=== PATIENT | female | born 1940 | race Caucasian/White ===

== ENCOUNTER 2017-02-08 18:58 | Emergency (ER) | payer MEDICARE, MEDICAID ==
[2017-02-08 19:22] VITALS: BP 120/67
[2017-02-08] MEDS ORDERED: fentaNYL 100 MCG/2 ML SDV IM ONE (20:07)
--- NOTE | 2017-02-08 20:16 | EDM.PDOC ---
ED HPI Trauma - General Chief Complaint: Lower Extremity Injury/Pain Stated Complaint: R KNEE PAIN Time Seen by Provider: 02/08/17 19:53 Source: Reports: Patient, Old records, RN notes reviewed History Limitations: Reports: No limitations - History of Present Illness INITIAL COMMENTS - FREE TEXT/NARRATIVE: Brought by daughter Chief complaint Right knee pain HPI 76-year-old female, lives on her own, normal ambulatory without assistance, had a nagging ache in her right knee when she woke up yesterday morning. He gradually got worse over the day and towards evening she started using a cane to walk around. She had some numbness in the left foot last night. The knee pain was bad enough to keep her awake in she was restless all night until she finally drifted to sleep about 4 AM. Discomfort was a bit better in the morning but she became to get around. And at the afternoon about 4 PM the pain became unbearable. She took some Tylenol without any benefit. She applied heat without benefit. It was worse with movement worse with weightbearing. She kept it still in a bent position. No longer has numbness but she does notice some tingling in the left foot. As she arrived here she noticed some swelling of the knee and she is tender on the inside of the knee. No ankle pain no hip pain no other joint pain or swelling. No history of injury No fever no rash 3 years ago she had swelling of the left knee which was much worse but the pain is much worse with this joint pain today Allergies/ADRs: Allergies acetaminophen [From Darvocet-N] Allergy (Verified 02/08/17 19:21) Cannot Remember amoxicillin Allergy (Verified 02/08/17 19:21) Cannot Remember aspirin Allergy (Verified 02/08/17 19:21) Cannot Remember ibuprofen Allergy (Verified 02/08/17 19:21) Cannot Remember meperidine HCl [From Demerol] Allergy (Verified 02/08/17 19:21) Cannot Remember morphine Allergy (Verified 02/08/17 19:21) Cannot Remember propoxyphene napsylate [From Darvocet-N] Allergy (Verified 02/08/17 19:21) Cannot Remember sulfamethoxazole [From Bactrim] Allergy (Verified 02/08/17 19:21) Cannot Remember tiotropium bromide [From Spiriva with HandiHaler] Allergy (Verified 02/08/17 19: 21) Cannot Remember tramadol Allergy (Verified 02/08/17 19:21) Cannot Remember trimethoprim [From Bactrim] Allergy (Verified 02/08/17 19:21) Cannot Remember varenicline tartrate [From Chantix] Allergy (Verified 02/08/17 19:21) Cannot Remember Home Medications: Ambulatory Orders Acetaminophen [Tylenol] 2 tab PO Q6H PRN 11/23/15 [Confirmed 02/08/17] Albuterol Sulfate [Proair Hfa] 2 puff INH QID 11/23/15 [Confirmed 02/08/17] Cholecalciferol (Vitamin D3) [Vitamin D3] 1 tab PO DAILY 11/23/15 [Confirmed 11/26] Clopidogrel [Plavix] 75 mg PO DAILY 11/23/15 [Confirmed 02/08/17] Fluticasone/Salmeterol [Advair Diskus 500-50] 1 puff INH BID 11/23/15 [ Confirmed 02/08/17] Gabapentin [Neurontin] 300 mg PO BID 11/23/15 [Confirmed 02/08/17] Garlic 1 tab PO DAILY 11/23/15 [Confirmed 02/08/17] Isosorbide Mononitrate [Imdur] 1 tab PO DAILY 11/23/15 [Confirmed 02/08/17] Lisinopril 1 tab PO DAILY 11/23/15 [Confirmed 02/08/17] Multivitamin [Multivitamins] 1 tab PO DAILY 11/23/15 [Confirmed 02/08/17] Nitroglycerin 1 tab SL ASDIRECTED 11/23/15 [Confirmed 02/08/17] Pantoprazole [ProTONIX] 1 tab PO DAILY 11/23/15 [Confirmed 02/08/17] Simvastatin [Zocor] 1 tab PO BEDTIME 11/23/15 [Confirmed 02/08/17] Hydrocodone/Acetaminophen [Hydrocodon-Acetaminophen 5-325] 1 each PO Q4H PRN #8 tablet 02/08/17 Prednisone [IJD: Prednisone] 40 mg PO DAILY #30 tab 02/08/17 tiZANidine [Zanaflex] 4 mg PO BEDTIME 02/08/17 [Confirmed 02/08/17] Past Medical History HEENT History: Reports: Cataract Cardiovascular History: Reports: CAD, High cholesterol, Hypertension, Other ( see below) Other Cardiovascular History: carotid bruit, subclavian steal syndrome, claudication, peripheral artery disease Respiratory History: Reports: COPD Gastrointestinal History: Reports: Cholelithiasis, Colon polyp, GERD Other Gastrointestinal History: AAA Genitourinary History: Reports: Diabetic nephropathy, Renal disease, Other (see below) Other Genitourinary History: unspecified kidney failure, CKD stage 3. 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: Musculoskeletal History: Reports: Osteoarthritis, Osteoporosis Neurological History: Reports: None Psychiatric History: Reports: None Endocrine/Metabolic History: Reports: Diabetes, type II Hematologic History: Reports: Blood transfusion(s) Immunologic History: Reports: None Oncologic (Cancer) History: Reports: None - Past Surgical History Cardiovascular Surgical History: Reports: Coronary artery stent GI Surgical History: Reports: Appendectomy, Cholecystectomy, Colonoscopy, Other (see below) Other GI Surgeries/Procedures: adenomatous polyp of colon Female Surgical History: Reports: Hysterectomy, Oophorectomy, Salpingo- oophorectomy Neurological Surgical History: Reports: None Musculoskeletal Surgical History: Reports: Other (see below) Other Musculoskeletal Surgeries/Procedures:: bilat toe surgery Social & Family History - Tobacco Use Smoking Status *Q: Current Every Day Smoker Years of Tobacco use: 60 Packs/Tins Daily: 1 - Recreational Drug Use Recreational Drug Use: No Review of Systems - Review of Systems Review Of Systems: See Below Constitutional: Reports: no symptoms Nose: Reports: no symptoms Mouth/Throat: Reports: no symptoms Respiratory: Reports: No Symptoms Cardiovascular: Reports: no symptoms GI/Abdominal: Reports: No symptoms Musculoskeletal: Reports: joint pain (Right knee), joint swelling (Right knee) Skin: Reports: no symptoms Neurological: Reports: Paresthesia, Gait Disturbance (Because of the pain) Psychiatric: Reports: other (Sleep disturbance) Trauma Exam - Physical Exam Exam: See Below Exam Limited By: No limitations General Appearance: Reports: alert, moderate distress, other (Vital signs normal , No difficulty speaking or breathing) Head: Reports: atraumatic, normocephalic Throat/Mouth: Reports: Normal inspection Respiratory Exam: Reports: no respiratory distress, no accessory muscle use Cardiovascular: Reports: normal peripheral pulses, regular rate, rhythm Extremities: Reports: no evidence of injury, pain with movement (Right knee), tenderness, unable to bear weight (Partial weightbearing only), other (Swelling superior and medial to the patella of the right knee, moderate warmth but no redness no heat no tenseness to the joint, no appreciable effusion of the joint , and appears to be extra-articular swelling, no redness) Neurologic: Reports: no motor/sensory deficits Skin: Reports: Normal color, Warm/dry, Other (No erythema, no cellulitis, no lymphangitis) Course - Vital Signs Last Recorded V/S: Last Vital Signs Temp 36.8 C 02/08/17 19:31 Pulse 93 02/08/17 19:31 Resp 16 02/08/17 19:31 BP 120/67 02/08/17 19:31 Pulse Ox 96 02/08/17 19:31 - Orders/Labs/Meds Orders: Active Orders 24 hr Category Date Time Status Bobby Bandage [RC] ONETIME Care 02/08/17 21:28 Active Knee 3V Rt [CR] Stat Exams 02/08/17 20:07 Taken Labs: Laboratory Tests 02/08/17 02/08/17 Range/Units 20:14 20:14 WBC 10.3 (4.5-11.0) K/uL RBC 4.59 (3.30-5.50) M/uL Hgb 13.5 D (12.0-15.0) g/dL Hct 41.3 (36.0-48.0) % MCV 90 (80-98) fL MCH 29 (27-31) pg MCHC 33 (32-36) % Plt Count 239 (150-400) K/uL Alkaline Phosphatase 88 (46-116) U/L C-Reactive Protein 6.50 H (0.0-0.3) mg/dL Meds: Medications Discontinued Medications Generic Name Dose Route Start Last Admin Trade Name Freq PRN Reason Stop Dose Admin Fentanyl 100 mcg 02/08/17 20:07 02/08/17 20:12 Sublimaze IM 02/08/17 20:08 100 mcg ONETIME ONE Administration - Re-Assessments/Exams Free Text/Narrative Re-Assessment/Exam: 02/08/17 20:16 76-year-old female with acute pain right knee, gradual onset of pain and swelling, warmth and extra-articular swelling, suggests bursitis. Fentanyl 100 mcg IM for pain X-ray small effusion but otherwise no significant abnormality Lab normal CBC but elevated CRP Impression Bursitis right knee Bobby wrap to knee Start prednisone, 40 mg daily for 5 days OTC analgesics her prescription pain meds as needed Followup primary care within one week Return to emergency if worsening See discharge instructions below 02/08/17 23:44 02/08/17 23:45 02/08/17 23:45 Departure - Departure Time of Disposition: 21:28 Disposition: Home, Self-Care 01 Condition: good Clinical Impression: Bursitis of left knee Qualifiers: Knee bursitis location: unspecified Qualified Code(s): M70.52 - Other bursitis of knee, left knee Prescriptions: Hydrocodone/Acetaminophen [Hydrocodon-Acetaminophen 5-325] 1 each PO Q4H PRN #8 tablet PRN Reason: Moderate to severe pain Prednisone [IJD: Prednisone] 40 mg PO DAILY #30 tab Instructions: Bursitis, [id number], Prepatellar Bursitis With Rehab-SportsMed Referrals: Louie Arriaga MD [Primary Care Provider] - Forms: ED Department Discharge Additional Instructions: you may take acetaminophen for pain Applying heat can be helpful Use the Bobby wrap for 3-5 days, it can be removed for bathing and if it increases the pain he can be left off. Have your physician recheck your knee within the week Get rechecked promptly if the knee becomes very red hot or you develop a fever - My Orders Last 24 Hours: My Active Orders 02/08/17 20:07 Knee 3V Rt [CR] Stat 02/08/17 21:28 Bobby Bandage [RC] ONETIME - Assessment/Plan Last 24 Hours: My Active Orders 02/08/17 20:07 Knee 3V Rt [CR] Stat 02/08/17 21:28 Bobby Bandage [RC] ONETIME
--- NOTE | 2017-02-09 09:44 | CR ---
Small effusion. No definitive fracture. The space narrowing medial compartment.
== END 2017-02-08 21:48 | disposition home or self-care (01) ==
LOC: JP.ED 18:58
DX: M70.52 Other bursitis of knee, left knee (principal); I25.10 Atherosclerotic heart disease of native coronary artery without angina pectoris; I10 Essential (primary) hypertension; E78.00 Pure hypercholesterolemia, unspecified; J44.9 Chronic obstructive pulmonary disease, unspecified; K21.9 Gastro-esophageal reflux disease without esophagitis; E11.21 Type 2 diabetes mellitus with diabetic nephropathy; F17.210 Nicotine dependence, cigarettes, uncomplicated; Z95.5 Presence of coronary angioplasty implant and graft; Z90.49 Acquired absence of other specified parts of digestive tract; Z90.710 Acquired absence of both cervix and uterus; Z90.721 Acquired absence of ovaries, unilateral; Z98.890 Other specified postprocedural states; Z79.02 Long term (current) use of antithrombotics/antiplatelets; Z79.899 Other long term (current) drug therapy; Z88.1 Allergy status to other antibiotic agents; Z88.5 Allergy status to narcotic agent; Z88.8 Allergy status to other drugs, medicaments and biological substances
CPT/HCPCS: 36415; 73562; 84075; 85027; 86140; 96372; 99283; 99284; J3010

== ENCOUNTER 2017-04-21 07:27 | Day surgery (SDC) | payer MEDICARE, MEDICAID ==
[2017-04-21] MEDS ORDERED: Sodium Chloride 0.9% 10 ML Syringe FLUSH PRN (08:00)
[2017-04-21 09:42] VITALS: BP 104/78
--- NOTE | 2017-04-21 10:23 | OR ---
DATE OF PROCEDURE: 04/21/2017 POSTOPERATIVE CARE: Postoperative care will be provided mainly at the [address] [place] [address] [facility] in conjunction with [facility]. PREOPERATIVE DIAGNOSIS: Cataract, left eye. POSTOPERATIVE DIAGNOSIS: Cataract, left eye. PROCEDURE: Phacoemulsification with intraocular lens placement, left eye. ANESTHESIA: Topical and intracameral. ESTIMATED BLOOD LOSS: Minimal. COMPLICATIONS: None. PATHOLOGY SPECIMENS: None. SURGICAL FINDINGS: None. INDICATION FOR PROCEDURE: The patient is a 76-year-old female with history of a visually significant cataract in the left eye, which interfered with activities of daily living. This consisted of a nuclear sclerosis cataract. Following careful discussion of the risks, benefits and alternatives to cataract extraction with intraocular lens placement including blindness and , the patient elected to proceed, and informed, written consent was obtained prior to the procedure. DESCRIPTION OF THE PROCEDURE: The patient was previously identified, and a latisha placed above the left eye. All sources, including the patient, indicated that the left eye was the correct eye. The patient was subsequently taken to the operating room where standard monitors were applied. The patient was then prepped and draped in the usual sterile fashion for ophthalmic surgery. Attention was first directed at the 12 o'clock position where a paracentesis port was fashioned. Shugar solution followed by Viscoat was instilled into the eye. Attention was then directed to the 8:30 position where a triplanar incision was made in a near-clear manner using a keratome. A continuous capsulorrhexis was then made using a combination of the cystotome and Utrata forceps. Hydrodissection was achieved using a balanced salt solution, and the lens rotated nicely. Phacoemulsification was then done using a modified [id number] technique without complication. Phaco time was 9.66 CDE. The remaining cortex was removed using the irrigation/aspiration handpiece. Provisc was then instilled into the eye. A Technis lens, model [id number], at 21.0 diopters was then placed in the capsular bag using an [place] injector. The remaining viscoelastic was removed using the irrigation/aspiration forceps. All wounds were then checked and found to be watertight. The lid speculum and drapes were removed. Maxitrol ointment was placed in the patient's left eye, and the eye was shielded. The patient tolerated the procedure well. The patient was instructed to follow up tomorrow. All needle and sponge counts were correct at the end of the procedure. Zoie Garcia MD /[id number]
== END 2017-04-21 09:05 | disposition home or self-care (01) ==
LOC: JP.SDS 07:27
PROVIDERS: ATTEND Ophthalmology
DX: H26.9 Unspecified cataract (principal); I10 Essential (primary) hypertension; E11.9 Type 2 diabetes mellitus without complications; J44.9 Chronic obstructive pulmonary disease, unspecified; K21.9 Gastro-esophageal reflux disease without esophagitis; Z88.1 Allergy status to other antibiotic agents; Z88.2 Allergy status to sulfonamides; Z88.8 Allergy status to other drugs, medicaments and biological substances
CPT/HCPCS: 66984; C1780

== ENCOUNTER 2017-05-05 06:38 | Day surgery (SDC) | payer MEDICARE, MEDICAID ==
[2017-05-05 06:59] VITALS: BP 130/82
[2017-05-05] MEDS ORDERED: Sodium Chloride 0.9% 10 ML Syringe FLUSH PRN (07:00)
--- NOTE | 2017-05-05 09:46 | OR ---
DATE OF PROCEDURE: 05/05/2017 POSTOPERATIVE CARE: Postoperative care will be provided mainly at the [address] [place] [address] [facility] in conjunction with [facility]. PREOPERATIVE DIAGNOSIS: Cataract, right eye. POSTOPERATIVE DIAGNOSIS: Cataract, right eye. PROCEDURE: Phacoemulsification with intraocular lens placement, right eye. ANESTHESIA: Topical and intracameral. ESTIMATED BLOOD LOSS: Minimal. COMPLICATIONS: None. PATHOLOGY SPECIMENS: None. SURGICAL FINDINGS: None. INDICATION FOR PROCEDURE: The patient is a 76-year-old female with history of a visually significant cataract in the right eye, which interfered with activities of daily living. This consisted of a nuclear sclerosis cataract. Following careful discussion of the risks, benefits and alternatives to cataract extraction with intraocular lens placement including blindness and , the patient elected to proceed, and informed, written consent was obtained prior to the procedure. DESCRIPTION OF THE PROCEDURE: The patient was previously identified, and a latisha placed above the right eye. All sources, including the patient, indicated that the right eye was the correct eye. The patient was subsequently taken to the operating room where standard monitors were applied. The patient was then prepped and draped in the usual sterile fashion for ophthalmic surgery. Attention was first directed at the 12 o'clock position where a paracentesis port was fashioned. Shugar solution followed by Viscoat was instilled into the eye. Attention was then directed to the 8:30 position where a triplanar incision was made in a near-clear manner using a keratome. A continuous capsulorrhexis was then made using a combination of the cystotome and Utrata forceps. Hydrodissection was achieved using a balanced salt solution, and the lens rotated nicely. Phacoemulsification was then done using a modified [id number] technique without complication. Phaco time was 10.52 CDE. The remaining cortex was removed using the irrigation/aspiration handpiece. Provisc was then instilled into the eye. A Technis lens, model [id number], at 21.0 diopters was then placed in the capsular bag using an [place] injector. The remaining viscoelastic was removed using the irrigation/aspiration forceps. All wounds were then checked and found to be watertight. The lid speculum and drapes were removed. Maxitrol ointment was placed in the patient's right eye, and the eye was shielded. The patient tolerated the procedure well. The patient was instructed to follow up tomorrow. All needle and sponge counts were correct at the end of the procedure. Zoie Garcia MD /[id number]
== END 2017-05-05 08:05 | disposition home or self-care (01) ==
LOC: JP.SDS 06:38
PROVIDERS: ATTEND Ophthalmology
DX: H26.9 Unspecified cataract (principal); E11.22 Type 2 diabetes mellitus with diabetic chronic kidney disease; I12.9 Hypertensive chronic kidney disease with stage 1 through stage 4 chronic kidney disease, or unspecified chronic kidney disease; N18.9 Chronic kidney disease, unspecified; K21.9 Gastro-esophageal reflux disease without esophagitis; I25.10 Atherosclerotic heart disease of native coronary artery without angina pectoris; Z88.1 Allergy status to other antibiotic agents; Z88.8 Allergy status to other drugs, medicaments and biological substances; F17.210 Nicotine dependence, cigarettes, uncomplicated
CPT/HCPCS: 66984; C1780; J7050

== ENCOUNTER 2018-03-13 00:42 | Inpatient (IN) | payer MEDICARE, MEDICAID ==
--- NOTE | 2018-03-13 01:21 | EDM.PDOC ---
ED HPI GENERAL MEDICAL PROBLEM - General Chief Complaint: Gastrointestinal Problem Stated Complaint: RECTAL BLEEDING Time Seen by Provider: 03/13/18 01:05 Source of Information: Reports: Patient, Old Records, RN History Limitations: Reports: No Limitations - History of Present Illness INITIAL COMMENTS - FREE TEXT/NARRATIVE: 77 yo female presents after the passage of blood per rectum several times tonight. She has not had nausea or vomiting. Is on Plavix for coronary stents. There is not abdominal pain. She has no hx of rectal bleeding in the past. Is still a smoker. Onset: Today Onset Date: 03/12/18 Duration: Hour(s): (~2) Location: Reports: Abdomen Quality: Reports: Other (no pain) Severity: Moderate Improves with: Reports: None Worsens with: Reports: None Context: Reports: Other (Take Plavix) Associated Symptoms: Reports: No Other Symptoms. Denies: Fever/Chills, Nausea/ Vomiting Treatments CLAIMS ADJUSTOR: Reports: Other (see below) (none) denies pain Pain Score (Numeric/FACES): 0 - Related Data Allergies Allergy/AdvReac Type Severity Reaction Status Date / Time acetaminophen Allergy Cannot Verified 05/05/17 06:54 [From Darvocet-N] Remember amoxicillin Allergy Cannot Verified 05/05/17 06:54 Remember aspirin Allergy Cannot Verified 05/05/17 06:54 Remember ibuprofen Allergy Cannot Verified 05/05/17 06:54 Remember meperidine HCl [From Demerol] Allergy Cannot Verified 05/05/17 06:54 Remember morphine Allergy Cannot Verified 05/05/17 06:54 Remember propoxyphene napsylate Allergy Cannot Verified 05/05/17 06:54 [From Darvocet-N] Remember sulfamethoxazole Allergy Cannot Verified 05/05/17 06:54 [From Bactrim] Remember tiotropium bromide Allergy Cannot Verified 05/05/17 06:54 [From Spiriva with Remember HandiHaler] tramadol Allergy Hallucinati Verified 03/13/18 00:51 ons trimethoprim [From Bactrim] Allergy Cannot Verified 05/05/17 06:54 Remember varenicline tartrate Allergy Cannot Verified 05/05/17 06:54 [From Chantix] Remember Home Meds: Home Meds Acetaminophen [Tylenol] 2 tab PO Q6H PRN 11/23/15 [History] Albuterol Sulfate [Proair Hfa] 2 puff INH QID 11/23/15 [History] Cholecalciferol (Vitamin D3) [Vitamin D3] 1 tab PO DAILY 11/23/15 [History] Clopidogrel [Plavix] 75 mg PO DAILY 11/23/15 [History] Fluticasone/Salmeterol [Advair Diskus 500-50] 1 puff INH BID 11/23/15 [History] Gabapentin [Neurontin] 300 mg PO BID 11/23/15 [History] Garlic 1 tab PO DAILY 11/23/15 [History] Isosorbide Mononitrate [Imdur] 1 tab PO DAILY 11/23/15 [History] Lisinopril 1 tab PO DAILY 11/23/15 [History] Multivitamin [Multivitamins] 1 tab PO DAILY 11/23/15 [History] Nitroglycerin 1 tab SL ASDIRECTED 11/23/15 [History] Pantoprazole [ProTONIX] 1 tab PO DAILY 11/23/15 [History] Simvastatin [Zocor] 1 tab PO BEDTIME 11/23/15 [History] tiZANidine [Zanaflex] 4 mg PO BEDTIME 02/08/17 [History] Past Medical History HEENT History: Reports: Cataract, Impaired Vision Cardiovascular History: Reports: CAD, High Cholesterol, Hypertension, [place] Other Cardiovascular History: carotid bruit, subclavian steal syndrome, claudication, peripheral artery disease Respiratory History: Reports: COPD Gastrointestinal History: Reports: Cholelithiasis, Colon Polyp, GERD Other Gastrointestinal History: AAA Genitourinary History: Reports: Diabetic Nephropathy, Renal Disease Other Genitourinary History: unspecified kidney failure, CKD stage 3. SOLE DYER History: Reports: Dysfunctional Uterine Bleeding, , Spontaneous Musculoskeletal History: Reports: Back Pain, Chronic, Fracture, Osteoarthritis Neurological History: Reports: Neuropathy, Diabetic Psychiatric History: Reports: None Endocrine/Metabolic History: Reports: Diabetes, Type II, Osteopenia Hematologic History: Reports: Blood Transfusion(s) Immunologic History: Reports: None Oncologic (Cancer) History: Reports: None - Infectious Disease History Infectious Disease History: Reports: Chicken Pox, Measles, Mumps, Shingles - Past Surgical History HEENT Surgical History: Reports: Cataract Surgery, Other (See Below) Other HEENT Surgeries/Procedures: torn macula surgically repaired Cardiovascular Surgical History: Reports: Carotid Endarterectomy, Coronary Artery Stent GI Surgical History: Reports: Appendectomy, Cholecystectomy, Colonoscopy Female Surgical History: Reports: D&C, Hysterectomy, Oophorectomy, Salpingo- Oophorectomy Social & Family History - Tobacco Use Smoking Status *Q: Current Every Day Smoker Years of Tobacco use: 55 Packs/Tins Daily: 1 - Caffeine Use Caffeine Use: Reports: Coffee - Recreational Drug Use Recreational Drug Use: No ED ROS GENERAL - Review of Systems Review Of Systems: See Below Constitutional: Reports: No Symptoms HEENT: Reports: No Symptoms Respiratory: Reports: No Symptoms Cardiovascular: Reports: No Symptoms GI/Abdominal: Reports: Bloody Stool (glendy blood per rectum x 6 since onset including here in the ER.). Denies: Abdominal Pain, Constipation, Distension, Hematemesis, Nausea, Vomiting : Reports: No Symptoms Musculoskeletal: Reports: No Symptoms Skin: Reports: No Symptoms Neurological: Reports: No Symptoms Psychiatric: Reports: No Symptoms ED EXAM, GI/ABD - Physical Exam Exam: See Below Exam Limited By: No Limitations General Appearance: Alert, WD/WN, No Apparent Distress Eyes: Bilateral: Normal Appearance Ears: Normal External Exam, Normal Canal, Hearing Grossly Normal Nose: Normal Inspection, Normal Mucosa, No Blood Throat/Mouth: Normal Inspection, Normal Lips, Normal Oropharynx, Normal Voice, No Airway Compromise Head: Atraumatic, Normocephalic Neck: Normal Inspection Respiratory/Chest: No Respiratory Distress, Lungs Clear, Normal Breath Sounds, No Accessory Muscle Use Cardiovascular: Regular Rate, Rhythm, No Edema GI/Abdominal Exam: Normal Bowel Sounds, Soft, Non-Tender, No Distention, Abnormal Bowel Sounds (increased) Back Exam: Normal Inspection. No: CVA Tenderness (R), CVA Tenderness (L) Extremities: Normal Inspection, Normal Range of Motion, Non-Tender, No Pedal Edema Neurological: Alert, Oriented, CN II-XII Intact, Normal Cognition, No Motor/ Sensory Deficits Psychiatric: Normal Affect, Normal Mood Skin Exam: Warm, Dry, Intact, Normal Color, No Rash Lymphatic: No Adenopathy Course - Vital Signs Text/Narrative:: Stool in toilet is grossly just red blood and clots. Last Recorded V/S: Last Vital Signs Temp 35.6 C 03/13/18 01:05 Pulse 76 03/13/18 01:05 Resp 20 03/13/18 01:05 BP 139/108 H 03/13/18 01:05 Pulse Ox 97 03/13/18 01:05 - Orders/Labs/Meds Orders: Active Orders 24 hr Category Date Time Status BASIC METABOLIC PANEL,BMP [CHEM] Stat Lab 03/13/18 01:10 Ordered CBC W/O DIFF,HEMOGRAM [HEME] Stat Lab 03/13/18 01:10 Ordered RED BLOOD CELLS LP [BBK] Stat Lab 03/13/18 01:10 Ordered TYPE AND SCREEN [BBK] Stat Lab 03/13/18 01:10 Ordered UA W/MICROSCOPIC [URIN] Stat Lab 03/13/18 01:10 Ordered Lactated Ringers [Ringers, Lactated] 1,000 ml Med 03/13/18 01:15 Active IV ASDIRECTED Sodium Chloride 0.9% [Normal Saline] 1,000 ml Med 03/13/18 01:30 Active IV ASDIRECTED Medication Orders Lactated Ringer's (Ringers, Lactated) 1,000 mls @ 500 mls/hr IV ASDIRECTED JOSE M Last Admin: 03/13/18 01:34 Dose: 500 mls/hr Sodium Chloride (Normal Saline) 1,000 mls @ 50 mls/hr IV ASDIRECTED JOSE M Meds: Medications Generic Name Dose Route Start Last Admin Trade Name Mesfin PRN Reason Stop Dose Admin Lactated Ringer's 1,000 mls @ 500 mls/hr 03/13/18 01:15 03/13/18 01:34 Ringers, Lactated IV 500 mls/hr ASDIRECTED JOSE M Administration Sodium Chloride 1,000 mls @ 50 mls/hr 03/13/18 01:30 Normal Saline IV ASDIRECTED JOSE M Departure - Departure Time of Disposition: 02:00 Disposition: Admitted As Inpatient 66 Condition: Fair Clinical Impression: Platelet inhibition due to Plavix GI bleeding Qualifiers: GI bleed type/associated pathology: unspecified gastrointestinal hemorrhage type Qualified Code(s): K92.2 - Gastrointestinal hemorrhage, unspecified - Discharge Information Referrals: Louie Arriaga MD [Primary Care Provider] - Forms: ED Department Discharge - My Orders Last 24 Hours: My Active Orders 03/13/18 01:10 BASIC METABOLIC PANEL,BMP [CHEM] Stat CBC W/O DIFF,HEMOGRAM [HEME] Stat RED BLOOD CELLS LP [BBK] Stat TYPE AND SCREEN [BBK] Stat UA W/MICROSCOPIC [URIN] Stat 03/13/18 01:15 Lactated Ringers [Ringers, Lactated] 1,000 ml IV ASDIRECTED 03/13/18 01:30 Sodium Chloride 0.9% [Normal Saline] 1,000 ml IV ASDIRECTED - Assessment/Plan Last 24 Hours: My Active Orders 03/13/18 01:10 BASIC METABOLIC PANEL,BMP [CHEM] Stat CBC W/O DIFF,HEMOGRAM [HEME] Stat RED BLOOD CELLS LP [BBK] Stat TYPE AND SCREEN [BBK] Stat UA W/MICROSCOPIC [URIN] Stat 03/13/18 01:15 Lactated Ringers [Ringers, Lactated] 1,000 ml IV ASDIRECTED 03/13/18 01:30 Sodium Chloride 0.9% [Normal Saline] 1,000 ml IV ASDIRECTED
[2018-03-13] MEDS: Lactated Ringers 1,000 ML IV SCH ×2 (01:34→04:14)
[2018-03-13] MEDS: Sodium Chloride 0.9% 1,000 ML IV SCH ×2 (02:02→05:45)
[2018-03-13] MEDS ORDERED: Pantoprazole 40 MG Vial IVPUSH ONE (02:22)
[2018-03-13] MEDS ORDERED: Lactated Ringers 1,000 ML IV SCH (03:15)
[2018-03-13] MEDS ORDERED: Sodium Chloride 0.9% 100 ML with Pantoprazole 80 MG IV SCH ×2 (03:15)
[2018-03-13] MEDS ORDERED: Sodium Chloride 0.9% 1,000 ML IV SCH (03:15)
[2018-03-13] MEDS ORDERED: fentaNYL 100 MCG/2 ML SDV IVPUSH PRN (03:18)
--- NOTE | 2018-03-13 03:31 | PCM.HP ---
H&P History of Present Illness - General Date of Service: 03/13/18 Admit Problem/Dx: Gastrointestinal bleeding Source of Information: Patient, Family, RN Notes Reviewed History Limitations: Reports: No Limitations - History of Present Illness Initial Comments - Free Text/Narative: 77-year-old female presents to the emergency department today with complaint of bright red blood per rectum. She states she's never had this before this is a new event she has had a colonoscopy in the past however it was several years ago. By report she states the colonoscopy only showed polyps. This particular event the bleeding started around 10 PM she has had multiple bloody stools with clots at this time she has had continual flow of blood per rectum. She does feel lightheaded does complain of shortness of breath but not beyond baseline. Complaining of abdominal cramping. History of recent hemorrhoid banding of this procedure 2 weeks ago no known complications Onset of Symptoms: Reports: Today denies pain Pain Score (Numeric/FACES): 0 - Related Data Allergies/Adverse Reactions: Allergies Allergy/AdvReac Type Severity Reaction Status Date / Time acetaminophen Allergy Cannot Verified 05/05/17 06:54 [From Darvocet-N] Remember amoxicillin Allergy Cannot Verified 05/05/17 06:54 Remember aspirin Allergy Cannot Verified 05/05/17 06:54 Remember ibuprofen Allergy Cannot Verified 05/05/17 06:54 Remember meperidine HCl [From Demerol] Allergy Cannot Verified 05/05/17 06:54 Remember morphine Allergy Cannot Verified 05/05/17 06:54 Remember propoxyphene napsylate Allergy Cannot Verified 05/05/17 06:54 [From Darvocet-N] Remember sulfamethoxazole Allergy Cannot Verified 05/05/17 06:54 [From Bactrim] Remember tiotropium bromide Allergy Cannot Verified 05/05/17 06:54 [From Spiriva with Remember HandiHaler] tramadol Allergy Hallucinati Verified 03/13/18 00:51 ons trimethoprim [From Bactrim] Allergy Cannot Verified 05/05/17 06:54 Remember varenicline tartrate Allergy Cannot Verified 05/05/17 06:54 [From Chantix] Remember Home Medications: Home Meds Acetaminophen [Tylenol] 2 tab PO Q6H PRN 11/23/15 [History] Albuterol Sulfate [Proair Hfa] 2 puff INH QID 02/14/16 [History] Cholecalciferol (Vitamin D3) [Vitamin D3] 1,000 unit PO DAILY 11/23/15 [History] Clopidogrel [Plavix] 75 mg PO DAILY 11/23/15 [History] Fluticasone/Salmeterol [Advair Diskus 500-50] 1 puff INH BID 11/23/15 [History] Gabapentin [Neurontin] 300 mg PO BID 11/23/15 [History] Garlic 1,000 mg PO DAILY 11/23/15 [History] Isosorbide Mononitrate [Imdur] 30 mg PO DAILY 11/23/15 [History] Lisinopril 2.5 mg PO DAILY 11/23/15 [History] Multivitamin [Multivitamins] 1 tab PO DAILY 11/23/15 [History] Nitroglycerin 0.4 mg SL ASDIRECTED 11/23/15 [History] Pantoprazole [ProTONIX] 40 mg PO DAILY 11/23/15 [History] Simvastatin [Zocor] 80 mg PO BEDTIME 11/23/15 [History] tiZANidine [Zanaflex] 4 mg PO BEDTIME 02/08/17 [History] Propranolol [Inderal] 10 mg PO BID 03/13/18 [History] Past Medical History HEENT History: Reports: Cataract, Impaired Vision Cardiovascular History: Reports: CAD, High Cholesterol, Hypertension, CT Other Cardiovascular History: carotid bruit, subclavian steal syndrome, claudication, peripheral artery disease Respiratory History: Reports: COPD Gastrointestinal History: Reports: Cholelithiasis, Colon Polyp, GERD Other Gastrointestinal History: AAA Genitourinary History: Reports: Diabetic Nephropathy, Renal Disease Other Genitourinary History: unspecified kidney failure, CKD stage 3. FLAG SIGNALMAN History: Reports: Dysfunctional Uterine Bleeding, , Spontaneous Musculoskeletal History: Reports: Back Pain, Chronic, Fracture, Osteoarthritis Neurological History: Reports: Neuropathy, Diabetic Endocrine/Metabolic History: Reports: Diabetes, Type II, Osteopenia Hematologic History: Reports: Blood Transfusion(s) - Infectious Disease History Infectious Disease History: Reports: Chicken Pox, Measles, Mumps, Shingles - Past Surgical History HEENT Surgical History: Reports: Cataract Surgery, Other (See Below) Other HEENT Surgeries/Procedures: torn macula surgically repaired Cardiovascular Surgical History: Reports: Carotid Endarterectomy, Coronary Artery Stent GI Surgical History: Reports: Appendectomy, Cholecystectomy, Colonoscopy Female Surgical History: Reports: D&C, Hysterectomy, Oophorectomy, Salpingo- Oophorectomy Social & Family History - Tobacco Use Smoking Status *Q: Current Every Day Smoker Years of Tobacco use: 55 Packs/Tins Daily: 1 - Caffeine Use Caffeine Use: Reports: Coffee - Recreational Drug Use Recreational Drug Use: No H&P Review of Systems - Review of Systems: Review Of Systems: See Below General: Denies: Fever, Chills HEENT: Reports: No Symptoms Pulmonary: Reports: Shortness of Breath Cardiovascular: Reports: No Symptoms Gastrointestinal: Reports: Abdominal Pain, Bloody Stool. Denies: Nausea, Vomiting Genitourinary: Reports: No Symptoms Musculoskeletal: Reports: No Symptoms Skin: Reports: No Symptoms Psychiatric: Reports: No Symptoms Neurological: Reports: No Symptoms Exam - Exam Exam: See Below - Vital Signs Vital Signs: Last Vital Signs Temp 96.7 F 03/13/18 02:22 Pulse 74 03/13/18 02:57 Resp 20 03/13/18 02:57 BP 122/72 03/13/18 02:57 Pulse Ox 95 03/13/18 02:57 Weight: 41.73 kg - Exam Physical Exam Comments:: General: Elderly female, not in any distress, alert and oriented x3 HEENT: head is atraumatic normocephalic, eyes pupils equal round reactive to light, sclera clear no conjunctivitis appreciated. Ears tympanic membranes clear and chery landmarks and light reflex are present bilaterally canals are clear. Nose no septal deviation, nares are clear, no blood present. Mouth mucosa is moist and pink no erythema or exudate noted in soft palate, tongue is midline uvula is midline, dentition is none. Neck: Supple no thyromegaly no tracheal deviation. Nodes: Cervical nodes subclavicular nodes nontender no palpable lymphadenopathy noted. Lungs: Breath sounds are distant on appreciate any adventitious noises. CV: Regular rate and rhythm S1 and S2 appreciated grade 2/6 systolic ejection murmur best appreciated left sternal border, no rubs or gallops noted. Abdomen: Soft, generalized tenderness to palpation, no palpable masses or organomegaly appreciated, no distention no guarding bowel sounds are present, rectal exam done in the presence of nursing staff of bright red blood is present her rectal, I don't appreciate any external hemorrhoids Neuro: Cranial nerves II through XII grossly intact Skin: Warm and dry, intact Extremities: No lower extremity edema appreciated, pedal pulse is +2. - Patient Data Lab Results Last 24 hrs: Laboratory Results - last 24 hr 03/13/18 03/13/18 03/13/18 Range/Units 01:20 01:20 01:20 WBC 6.9 (4.5-11.0) K/uL RBC 4.46 (3.30-5.50) M/uL Hgb 13.5 (12.0-15.0) g/dL Hct 39.9 (36.0-48.0) % MCV 90 (80-98) fL MCH 30 (27-31) pg MCHC 34 (32-36) % Plt Count 222 (150-400) K/uL Sodium 132 L (140-148) mmol/L Potassium 4.3 (3.6-5.2) mmol/L Chloride 97 L (100-108) mmol/L Carbon Dioxide 30 (21-32) mmol/L Anion Gap 9.3 (5.0-14.0) mmol/L BUN 19 H (7-18) mg/dL Creatinine 1.0 (0.6-1.0) mg/dL Est Cr Clr Drug Dosing 31.04 mL/min Estimated GFR (MDRD) 54 L (>60) Glucose 138 H (74-106) mg/dL Calcium 8.4 L (8.5-10.1) mg/dL Urine Color Urine Appearance Urine pH (4.5-8.0) Ur Specific [place] (1.008-1.030) Urine Protein (NEGATIVE) mg/dL Urine Glucose (UA) (NEGATIVE) mg/dL Urine Ketones (NEGATIVE) mg/dL Urine Occult Blood (NEGATIVE) Urine Nitrite (NEGATIVE) Urine Bilirubin (NEGATIVE) Urine Urobilinogen (NORMAL) mg/dL Ur Leukocyte Esterase (NEGATIVE) Urine RBC (0-5) Urine WBC (0-5) Ur Epithelial Cells Amorphous Sediment Urine Bacteria Urine Mucus Blood Type A POSITIVE Gel Antibody Screen Negative Crossmatch See Detail 03/13/18 Range/Units 01:56 WBC (4.5-11.0) K/uL RBC (3.30-5.50) M/uL Hgb (12.0-15.0) g/dL Hct (36.0-48.0) % MCV (80-98) fL MCH (27-31) pg MCHC (32-36) % Plt Count (150-400) K/uL Sodium (140-148) mmol/L Potassium (3.6-5.2) mmol/L Chloride (100-108) mmol/L Carbon Dioxide (21-32) mmol/L Anion Gap (5.0-14.0) mmol/L BUN (7-18) mg/dL Creatinine (0.6-1.0) mg/dL Est Cr Clr Drug Dosing mL/min Estimated GFR (MDRD) (>60) Glucose (74-106) mg/dL Calcium (8.5-10.1) mg/dL Urine Color Yellow Urine Appearance Cloudy Urine pH 7.0 (4.5-8.0) Ur Specific [place] 1.005 L (1.008-1.030) Urine Protein Negative (NEGATIVE) mg/dL Urine Glucose (UA) Normal (NEGATIVE) mg/dL Urine Ketones Negative (NEGATIVE) mg/dL Urine Occult Blood Large (NEGATIVE) Urine Nitrite Negative (NEGATIVE) Urine Bilirubin Negative (NEGATIVE) Urine Urobilinogen Normal (NORMAL) mg/dL Ur Leukocyte Esterase Negative (NEGATIVE) Urine RBC 75-100 H (0-5) Urine WBC 0-5 (0-5) Ur Epithelial Cells Rare Amorphous Sediment Not seen Urine Bacteria Few Urine Mucus Not seen Blood Type Gel Antibody Screen Crossmatch Result Diagrams: 03/13/18 01:20 03/13/18 01:20 *Q Meaningful Use (ADM) - VTE *Q VTE Mechanical Contraindications *Q: At Risk for Falls VTE Pharmacological Contraindications *Q: Active Hemorrhage - VTE Risk Assess *Q Each Risk Factor Represents 3 Points: Age 75 Years or Greater Total Score 3 Point Risk Factors: 3 - Problem List (1) GI bleeding SNOMED Code(s): 48310259 ICD Code: K92.2 - GASTROINTESTINAL HEMORRHAGE, UNSPECIFIED Status: Acute Current Visit: Yes Qualifiers: GI bleed type/associated pathology: unspecified gastrointestinal hemorrhage type Qualified Code(s): K92.2 - Gastrointestinal hemorrhage, unspecified (2) COPD (chronic obstructive pulmonary disease) SNOMED Code(s): 00254635 ICD Code: J44.9 - CHRONIC OBSTRUCTIVE PULMONARY DISEASE, UNSPECIFIED Status : Chronic Priority: Medium Current Visit: No Qualifiers: COPD type: unspecified COPD Qualified Code(s): J44.9 - Chronic obstructive pulmonary disease, unspecified (3) Nicotine dependence SNOMED Code(s): 22495022 ICD Code: F17.200 - NICOTINE DEPENDENCE, UNSPECIFIED, UNCOMPLICATED Status : Chronic Priority: Low Current Visit: No Qualifiers: Nicotine product type: cigarettes Substance use status: unspecified nicotine-induced disorder Qualified Code(s): F17.219 - Nicotine dependence, cigarettes, with unspecified nicotine-induced disorders Problem List Initiated/Reviewed/Updated: Yes Orders Last 24hrs: Active Orders 24 hr Category Date Time Status Head of Bed Elevation [RC] ASDIRECTED Care 03/13/18 03:11 Ordered Intake and Output [RC] QSHIFT Care 03/13/18 03:12 Ordered Notify Provider Consults [RC] ASDIRECTED Care 03/13/18 02:19 Active Consult to Physician [CONS] Urgent Cons 03/13/18 02:15 Ordered BASIC METABOLIC PANEL,BMP [CHEM] AM Lab 03/13/18 05:11 Ordered CBC WITH AUTO DIFF [HEME] AM Lab 03/13/18 05:11 Ordered HEMOGLOBIN [HEME] Stat Lab 03/13/18 03:30 Ordered INR,PT,PROTHROMBIN TIME [COAG] Urgent Lab 03/13/18 03:22 Ordered RED BLOOD CELLS LP [BBK] Stat Lab 03/13/18 01:20 Results TYPE AND SCREEN [BBK] Stat Lab 03/13/18 01:20 Results UA W/MICROSCOPIC [URIN] Stat Lab 03/13/18 01:56 Ordered Albuterol [Ventolin HFA] Med 03/13/18 06:00 Ordered 2 puff INH QID Fluticasone/Salmeterol [Advair Diskus 500-50] Med 03/13/18 09:00 Ordered 1 puff INH BID Isosorbide Mononitrate [Imdur] Med 03/13/18 09:00 Ordered 30 mg PO DAILY Lactated Ringers [Ringers, Lactated] 1,000 ml Med 03/13/18 01:15 Active IV ASDIRECTED Lactated Ringers [Ringers, Lactated] 1,000 ml Med 03/13/18 03:15 Ordered IV ASDIRECTED Lisinopril [Prinivil] Med 03/13/18 09:00 Ordered 2.5 mg PO DAILY Ondansetron [Zofran] Med 03/13/18 03:18 Ordered 4 mg IVPUSH Q6H PRN Pantoprazole 80 MG in Sodium Chloride 0.9% @ 10 MLS/HR( Med 03/13/18 03:15 Ordered 100ml) Sodium Chloride 0.9% [Normal Saline] 100 ml Pantoprazole [ProTONIX IV] 80 mg IV 10 mls/hr Propranolol [Inderal] Med 03/13/18 09:00 Ordered 10 mg PO BID Sodium Chloride 0.9% [Normal Saline] 1,000 ml Med 03/13/18 01:30 Active IV ASDIRECTED Sodium Chloride 0.9% [Normal Saline] 1,000 ml Med 03/13/18 03:15 Ordered IV ASDIRECTED fentaNYL [Sublimaze] Med 03/13/18 03:18 Ordered 50 mcg IVPUSH Q6H PRN tiZANidine [Zanaflex] Med 03/13/18 21:00 Ordered 4 mg PO BEDTIME Medication Orders Albuterol (Ventolin Hfa) gm INH QID JOSE M Fentanyl (Sublimaze) 50 mcg IVPUSH Q6H PRN PRN Reason: Pain (severe 7-10) Lactated Ringer's (Ringers, Lactated) 1,000 mls @ 500 mls/hr IV ASDIRECTED [facility] Last Admin: 03/13/18 01:34 Dose: 500 mls/hr Sodium Chloride (Normal Saline) 1,000 mls @ 50 mls/hr IV ASDIRECTED [facility] Last Admin: 03/13/18 02:02 Dose: 50 mls/hr Lactated Ringer's (Ringers, Lactated) 1,000 mls @ 500 mls/hr IV ASDIRECTED JOSE M Pantoprazole Sodium 80 mg/ (Sodium Chloride) 100 mls @ 10 mls/hr IV .Q10H JOSE M Sodium Chloride (Normal Saline) 1,000 mls @ 50 mls/hr IV ASDIRECTED JOSE M Isosorbide Mononitrate (Imdur) 30 mg PO DAILY JOSE M Lisinopril (Prinivil) 2.5 mg PO DAILY JOSE M Non-Formulary Medication (Fluticasone/Salmeterol [Advair Diskus 500-50]) 1 puff INH BID JOSE M Ondansetron HCl (Zofran) 4 mg IVPUSH Q6H PRN PRN Reason: Nausea/Vomiting Propranolol HCl (Inderal) 10 mg PO BID JOSE M Tizanidine HCl (Zanaflex) 4 mg PO BEDTIME JOSE M Assessment/Plan Comment:: ASSESSMENT AND PLAN Active GI bleeding bright red blood per rectum initial hemoglobin 13.9 -Plan for admission to the ICU 2 IVs have been placed, started on a Protonix drip, general surgery Dr. Ronquillo consult for colonoscopy/EGD in the morning -2 units packed red blood cells on hold -Cardiac monitoring Chronic obstructive pulmonary disease -Stable at this time will continue current medications Nicotine dependence -Start transdermal patch MAINTENANCE ISSUES -DVT prophylaxis; none required at this time active hemorrhage -GI prophylaxis; started on Protonix drip -Wyatt catheter; not indicated at this time -Nutrition; nothing by mouth prior to surgical intervention -Nicotine dependence; transdermal patch CODE STATUS-FULL CODE ADMISSION STATUS-patient will be admitted to inpatient status, expect at least a 2 night hospital stay for evaluation and management of problems as outlined above. At the time of this admission I do not reasonably expected evaluation and management of this problem will require more than a 96 hour hospital stay. DISPOSITION - anticipate discharge to home after the hospital stay. PRIMARY CARE PROVIDER - Dr. Arriaga
[2018-03-13] MEDS ORDERED: Nicotine 14 MG/24 Hr Patch ONE (04:34)
[2018-03-13] MEDS: Nicotine 14 MG/24 Hr Patch TRDERM SCH ×3 (04:45→21:00)
[2018-03-13] MEDS: Pantoprazole 80 MG in Sodium Chloride 0.9% 100 ML IV SCH ×4 (04:45→23:00)
[2018-03-13] MEDS ORDERED: Albuterol 8 GM Inhaler INH SCH (06:00)
[2018-03-13] MEDS ORDERED: Isosorbide Mononitrate 30 MG Tab.ER PO SCH (07:30)
[2018-03-13] MEDS ORDERED: Rocuronium 50 MG/5 ML Vial ONE (07:38)
[2018-03-13] MEDS ORDERED: Ondansetron 4 MG/2 ML SDV ONE (07:38)
[2018-03-13] MEDS ORDERED: Succinylcholine 200 MG/10 ML MDV ONE (07:38)
[2018-03-13] MEDS ORDERED: fentaNYL 100 MCG/2 ML SDV ONE (07:38)
[2018-03-13] MEDS ORDERED: Propofol 200 MG/20 ML SDV ONE (07:38)
[2018-03-13] MEDS ORDERED: Dexamethasone 4 MG/ML SDV ONE (07:38)
[2018-03-13] MEDS ORDERED: Coagulation Factor VIIa Recombinant (per MCG) 2 MG Vial IVPUSH ONE ×2 (08:00→11:30)
[2018-03-13] MEDS ORDERED: Bupivacaine 0.5%/EPINEPHrine 1:200,000 50 ML MDV ONE (08:01)
[2018-03-13] MEDS ORDERED: Lisinopril 2.5 MG Tab PO SCH (09:00)
[2018-03-13] MEDS: Formoterol/Mometasone 200-5 MCG 8.8 GM Inhaler IH SCH ×3 (09:12→21:00)
[2018-03-13] MEDS ORDERED: Meropenem 500 MG in Sodium Chloride 0.9% 50 ML IV ONE ×2 (09:30→14:00)
[2018-03-13] MEDS ORDERED: Neostigmine Methylsulfate 1 MG/ML 5 ML Syringe ONE (09:42)
[2018-03-13] MEDS ORDERED: Glycopyrrolate 0.2 MG/ML 5 ML MDV ONE (09:42)
[2018-03-13] MEDS: Propranolol 10 MG Tab PO SCH ×2 (10:37→21:00)
[2018-03-13] MEDS: Albuterol 8 GM Inhaler INH SCH ×3 (11:02→21:00)
[2018-03-13] MEDS ORDERED: Bisacodyl 5 MG Tab PO ONE ×2 (11:30→20:00)
[2018-03-13] MEDS: Dextrose 5%-Lactated Ringers 1,000 ML IV SCH (11:37)
[2018-03-13] MEDS: Ondansetron 4 MG/2 ML SDV IVPUSH PRN ×2 (14:24→20:03)
[2018-03-13] MEDS ORDERED: Polyethylene Glycol 3350 Powder 238 GM Bot PO ONE (17:00)
[2018-03-13] MEDS: tiZANidine 4 MG Tab PO SCH (21:00)
[2018-03-14] MEDS: Dextrose 5%-Lactated Ringers 1,000 ML IV SCH ×2 (03:49→13:32)
[2018-03-14] MEDS ORDERED: fentaNYL 100 MCG/2 ML SDV ONE (07:02)
[2018-03-14] MEDS ORDERED: Propofol 200 MG/20 ML SDV ONE (07:02)
[2018-03-14] MEDS: Formoterol/Mometasone 200-5 MCG 8.8 GM Inhaler IH SCH ×2 (07:14→20:52)
--- NOTE | 2018-03-14 09:10 | PCM.PN ---
- General Info Date of Service: 03/14/18 Functional Status: Reports: Pain Controlled - Review of Systems General: Denies: Fever Gastrointestinal: Reports: Abdominal Pain. Denies: Hematochezia Systems Review Comment:: No acute events overnight. Tolerated bowel prep well. Bleeding seems to have stopped at this time. Hemoglobin has remained greater than 10. Blood pressure and heart rate have been stable and appetite has improved. Repeat colonoscopy this morning was incomplete and did not reveal a source of bleeding. Barium enema did not reveal acute pathology. Patient has not had any fevers. - Patient Data Vitals - Most Recent: Last Vital Signs Temp 36.8 C 03/14/18 08:15 Pulse 76 03/14/18 08:15 Resp 20 03/14/18 08:15 BP 170/77 H 03/14/18 08:15 Pulse Ox 96 03/14/18 08:10 Weight - Most Recent: 45.359 kg I&O - Last 24 Hours: Intake & Output 03/13/18 03/14/18 03/14/18 22:59 06:59 14:59 Intake Total 1770 854 75 Output Total 550 Balance 1220 854 75 Lab Results Last 24 Hours: Laboratory Results - last 24 hr 03/13/18 03/14/18 03/14/18 Range/Units 17:02 04:00 04:00 WBC 6.4 5.7 (4.5-11.0) K/uL RBC 3.69 3.40 (3.30-5.50) M/uL Hgb 10.8 L 10.1 L (12.0-15.0) g/dL Hct 33.0 L 30.4 L (36.0-48.0) % MCV 89 89 (80-98) fL MCH 29 30 (27-31) pg MCHC 33 33 (32-36) % Plt Count 143 L 145 L (150-400) K/uL Sodium 133 L (140-148) mmol/L Potassium 4.5 (3.6-5.2) mmol/L Chloride 100 (100-108) mmol/L Carbon Dioxide 30 (21-32) mmol/L Anion Gap 7.5 (5.0-14.0) mmol/L BUN 10 (7-18) mg/dL Creatinine 0.8 (0.6-1.0) mg/dL Est Cr Clr Drug Dosing 42.17 mL/min Estimated GFR (MDRD) > 60 (>60) Glucose 106 (74-106) mg/dL Calcium 7.7 L (8.5-10.1) mg/dL Phosphorus 3.4 (2.5-4.9) mg/dL Magnesium 1.7 L (1.8-2.4) mg/dL Total Bilirubin 0.6 (0.2-1.0) mg/dL AST 19 (15-37) U/L ALT 20 (12-78) U/L Alkaline Phosphatase 60 (46-116) U/L NT-Pro-B Natriuret Pep 1070 H (5-450) pg/mL Total Protein 5.0 L (6.4-8.2) g/dL Albumin 2.5 L (3.4-5.0) g/dL Globulin 2.5 (2.3-3.5) g/dL Albumin/Globulin Ratio 1.0 L (1.2-2.2) Med Orders - Current: Current Medications Albuterol (Ventolin Hfa) 0 gm INH QIDRT [facility] Last Admin: 03/13/18 21:00 Dose: 2 puff Fentanyl (Sublimaze) 50 mcg IVPUSH Q6H PRN PRN Reason: Pain (severe 7-10) Sodium Chloride (Normal Saline) 1,000 mls @ 50 mls/hr IV ASDIRECTED [facility] Pantoprazole Sodium 80 mg/ (Sodium Chloride) 100 mls @ 10 mls/hr IV Q10H [facility] Last Admin: 03/13/18 23:00 Dose: 10 mls/hr Dextrose/Lactated Ringer's (Dextrose 5%-Lactated Ringers) 1,000 mls @ 80 mls/ hr IV ASDIRECTED [facility] Last Admin: 03/14/18 03:49 Dose: 80 mls/hr Isosorbide Mononitrate (Imdur) 30 mg PO DAILY@0730 [facility] Last Admin: 03/13/18 07:43 Dose: Not Given Lisinopril (Prinivil) 2.5 mg PO DAILY [facility] Mometasone Furoate/Formoterol Fumar (Dulera 200-5 Mcg) 2 puff IH BIDRT [facility] Last Admin: 03/14/18 07:14 Dose: 2 puff Nicotine (Habitrol) 14 mg TRDERM BEDTIME [facility] Last Admin: 03/13/18 21:00 Dose: 14 mg Ondansetron HCl (Zofran) 4 mg IVPUSH Q6H PRN PRN Reason: Nausea/Vomiting Last Admin: 03/13/18 20:03 Dose: 4 mg Propranolol HCl (Inderal) 10 mg PO BID [facility] Last Admin: 03/13/18 21:00 Dose: 10 mg Tizanidine HCl (Zanaflex) 4 mg PO BEDTIME [facility] Last Admin: 03/13/18 21:00 Dose: 4 mg Discontinued Medications Albuterol (Ventolin Hfa) 0 gm INH QID [facility] Last Admin: 03/13/18 05:40 Dose: 2 puff Bisacodyl (Dulcolax) 10 mg PO ONETIME ONE Stop: 03/13/18 11:31 Last Admin: 03/13/18 11:33 Dose: 10 mg Bisacodyl (Dulcolax) 10 mg PO ONETIME ONE Stop: 03/13/18 20:01 Last Admin: 03/13/18 20:03 Dose: 10 mg Bupivacaine HCl/Epinephrine Bitart (Marcaine 0.5%/Epinephrine 1:200,000) Confirm Administered Dose 50 ml .ROUTE .STK-MED ONE Stop: 03/13/18 08:02 Dexamethasone (Dexamethasone) Confirm Administered Dose 4 mg .ROUTE .STK-MED ONE Stop: 03/13/18 07:39 Factor VIIa (Recombinant) (Novoseven Rt) 2,000 mcg IVPUSH ONETIME ONE Stop: 03/13/18 08:01 Last Admin: 03/13/18 08:06 Dose: 2,000 mcg Factor VIIa (Recombinant) (Novoseven Rt) 2,000 mcg IVPUSH ONETIME ONE Stop: 03/13/18 11:31 Last Admin: 03/13/18 11:33 Dose: 2,000 mcg Fentanyl (Sublimaze) Confirm Administered Dose 100 mcg .ROUTE .STK-MED ONE Stop: 03/13/18 07:39 Fentanyl (Sublimaze) Confirm Administered Dose 100 mcg .ROUTE .STK-MED ONE Stop: 03/14/18 07:03 Glycopyrrolate (Robinul) Confirm Administered Dose 1 mg .ROUTE .STK-MED ONE Stop: 03/13/18 09:43 Lactated Ringer's (Ringers, Lactated) 1,000 mls @ 500 mls/hr IV ASDIRECTED [facility] Last Admin: 03/13/18 04:14 Dose: 500 mls/hr Sodium Chloride (Normal Saline) 1,000 mls @ 50 mls/hr IV ASDIRECTED [facility] Last Admin: 03/13/18 05:45 Dose: 50 mls/hr Lactated Ringer's (Ringers, Lactated) 1,000 mls @ 500 mls/hr IV ASDIRECTED [facility] Pantoprazole Sodium 80 mg/ (Sodium Chloride) 100 mls @ 10 mls/hr IV .Q10H [facility] Last Admin: 03/13/18 05:46 Dose: Not Given Meropenem 500 mg/ Sodium (Chloride) 50 mls @ 100 mls/hr IV ONCALL ONE Stop: 03/13/18 14:29 Meropenem 500 mg/ Sodium (Chloride) 50 mls @ 100 mls/hr IV ONCALL ONE Stop: 03/13/18 09:59 Last Admin: 03/13/18 09:07 Dose: 100 mls/hr Neostigmine Methylsulfate (Neostigmine) Confirm Administered Dose 5 mg .ROUTE .STK-MED ONE Stop: 03/13/18 09:43 Nicotine (Habitrol) 14 mg TRDERM DAILY [facility] Last Admin: 03/13/18 10:36 Dose: Not Given Nicotine (Habitrol) Confirm Administered Dose 14 mg .ROUTE .STK-MED ONE Stop: 03/13/18 04:35 Last Admin: 03/13/18 04:55 Dose: Not Given Ondansetron HCl (Zofran) Confirm Administered Dose 4 mg .ROUTE .STK-MED ONE Stop: 03/13/18 07:39 Pantoprazole Sodium (Protonix Iv) 40 mg IVPUSH ONETIME ONE Stop: 03/13/18 02:23 Last Admin: 03/13/18 02:45 Dose: 40 mg Polyethylene Glycol (Miralax) 238 gm PO ONETIME ONE Stop: 03/13/18 17:01 Last Admin: 03/13/18 17:00 Dose: 238 gm Propofol (Diprivan 20 Ml) Confirm Administered Dose 200 mg .ROUTE .STK-MED ONE Stop: 03/13/18 07:39 Propofol (Diprivan 20 Ml) Confirm Administered Dose 200 mg .ROUTE .STK-MED ONE Stop: 03/14/18 07:03 Rocuronium [place] (Zemuron) Confirm Administered Dose 50 mg .ROUTE .STK-MED ONE Stop: 03/13/18 07:39 Succinylcholine Chloride (Quelicin) Confirm Administered Dose 200 mg .ROUTE .STK -MED ONE Stop: 03/13/18 07:39 - Exam Quality Assessment: No: Supplemental Oxygen General: Alert, Oriented, Cooperative, No Acute Distress Neck: Supple Lungs: Clear to Auscultation, Normal Respiratory Effort Cardiovascular: Regular Rate, Regular Rhythm GI/Abdominal Exam: Normal Bowel Sounds, Soft, No Distention, Tender Extremities: No Pedal Edema Psy/Mental Status: Alert, Normal Affect - Problem List Review Problem List Initiated/Reviewed/Updated: Yes - My Orders Last 24 Hours: My Active Orders 03/13/18 20:00 HGB [HEMOGLOBIN] [HEME] Routine - Plan Plan:: ASSESSMENT AND PLAN Acute lower gastrointestinal hemorrhage - required urgent transfusion of 2 units of packed red blood cells. Bleeding seems to have stopped. 2 colonoscopies have been nondiagnostic with poor visualization on the first one and incomplete colonoscopy today. Suspect diverticular bleeding. -Repeat hemoglobin in the morning -2 units packed red blood cells on hold -Continue to hold clopidogrel -discontinue Cardiac monitoring Chronic obstructive pulmonary disease - stable at this time. -continue current medications Nicotine dependence -Continue nicotine replacement MAINTENANCE ISSUES -DVT prophylaxis; Mechanical -GI prophylaxis; PPI -Wyatt catheter; not indicated at this time -Nutrition; advance diet as tolerated -Nicotine dependence; transdermal patch DISPOSITION - anticipate discharge to home after the hospital stay. Brian Bryan M.D.
[2018-03-14] MEDS: Magnesium Sulfate/Water 2 GM in Premix Bag 1 BAG IV SCH ×3 (10:25→21:34)
[2018-03-14] MEDS: Propranolol 10 MG Tab PO SCH ×2 (10:27→20:53)
[2018-03-14] MEDS: Albuterol 8 GM Inhaler INH SCH ×4 (10:28→20:52)
--- NOTE | 2018-03-14 11:58 | CR ---
Barium Enema single contrast CLINICAL HISTORY: Incomplete colonoscopy FINDINGS: The sigmoid colon is moderately tortuous and redundant. There are scattered diverticula. No annular constricting lesions identified. There is some retained stool in the sigmoid colon which was mobile There are scattered rounded the filling defects in the right colon. Most of these were mobile . IMPRESSION: Moderately tortuous and redundant colon. Sigmoid diverticulosis without evidence of diverticulitis Moderate retained stool. There are scattered predominantly mobile filling defects but,due to the amou nt of retained stool, a mucosal polyp with be difficult to exclude.
[2018-03-14] MEDS: Nicotine 14 MG/24 Hr Patch TRDERM SCH (20:52)
[2018-03-14] MEDS: tiZANidine 4 MG Tab PO SCH (20:53)
[2018-03-15] MEDS: Magnesium Sulfate/Water 2 GM in Premix Bag 1 BAG IV SCH (03:01)
[2018-03-15] MEDS: Dextrose 5%-Lactated Ringers 1,000 ML IV SCH (03:01)
[2018-03-15] MEDS: Formoterol/Mometasone 200-5 MCG 8.8 GM Inhaler IH SCH (07:18)
[2018-03-15] MEDS: Albuterol 8 GM Inhaler INH SCH (07:18)
[2018-03-15] MEDS ORDERED: Pantoprazole 40 MG Tab.CR PO SCH (07:30)
[2018-03-15 08:15] VITALS: BP 162/88
--- NOTE | 2018-03-15 09:11 | PCM.DCSUM1 ---
Discharge Summary - Hospital Course Brief History: 77-year-old female with nicotine dependence, remote history of coronary artery disease on clopidogrel therapy as well as COPD who presented with hematochezia. She was admitted for management of acute lower GI hemorrhage with hypotension and blood loss anemia. - Discharge Data Discharge Date: 03/15/18 Discharge Disposition: Home, Self-Care 01 Condition: Good - Discharge Diagnosis/Problem(s) (1) Acute lower gastrointestinal hemorrhage SNOMED Code(s): 50872900 ICD Code: K92.2 - GASTROINTESTINAL HEMORRHAGE, UNSPECIFIED Status: Acute (2) Anemia due to acute blood loss SNOMED Code(s): 796603131 ICD Code: D62 - ACUTE POSTHEMORRHAGIC ANEMIA Status: Acute (3) COPD (chronic obstructive pulmonary disease) SNOMED Code(s): 64013231 ICD Code: J44.9 - CHRONIC OBSTRUCTIVE PULMONARY DISEASE, UNSPECIFIED Status : Chronic Priority: Medium Qualifiers: COPD type: unspecified COPD Qualified Code(s): J44.9 - Chronic obstructive pulmonary disease, unspecified (4) CAD (coronary artery disease) SNOMED Code(s): 38654734 ICD Code: I25.10 - ATHSCL HEART DISEASE OF [place] CORONARY ARTERY W/O ANG PCTRS Status: Chronic Qualifiers: Coronary Disease-Associated Artery/Lesion type: [place] artery [place] vs. transplanted heart: [place] heart Associated angina: without angina Qualified Code(s): I25.10 - Atherosclerotic heart disease of [place] coronary artery without angina pectoris (5) Nicotine dependence SNOMED Code(s): 63065716 ICD Code: F17.200 - NICOTINE DEPENDENCE, UNSPECIFIED, UNCOMPLICATED Status : Chronic Priority: Low Qualifiers: Nicotine product type: cigarettes Substance use status: unspecified nicotine-induced disorder Qualified Code(s): F17.219 - Nicotine dependence, cigarettes, with unspecified nicotine-induced disorders - Patient Summary/Data Consults: Consultations 03/13/18 02:15 Consult to Physician [CONS] Urgent Consulting Provider: David Ronquillo Courtesy Call Completed to Consulting Physician: Yes: Dr. David Ronquillo Reason for Consult: lower GI bleed Person Notified: Dr. David Ronquillo Date Notified: 03/13/18 Time Notified: 01:50 Special Instructions: keep NPO, no bowel prep, will evaluate for surgery procedure in am. Hospital Course: Judy presented to the emergency room with approximately 8 hours of hematochezia that had been progressing and did not stop. Workup in the emergency room was suggestive of acute lower gastrointestinal hemorrhage. She was hypotensive despite aggressive IV fluids and did receive 2 units of blood via transfusion at the time of admission to the intensive care unit. Blood pressure did stabilize after blood transfusion. With ongoing and fairly steady rectal bleeding she was taken to the operating room for colonoscopy several hours after admission. Unfortunately this colonoscopy was nondiagnostic given the amount of blood in the colon. She was returned to the intensive care unit where she had remained relatively stable throughout the rest of the morning and early afternoon. She completed a colonoscopy prep in the afternoon following admission. Serial hemoglobin levels had dropped to around 10 and rebounded slightly following the blood transfusion. The morning after admission the bleeding seems to have stopped. She did tolerate the colonoscopy prep well. Her hemoglobin level is still around 10. The second colonoscopy was attempted the morning after admission but because of her redundant colon the colonoscopy was incomplete. The patient returned to the intensive care unit and a barium enema was performed which did not show significant findings. She was started on a diet which she tolerated well. She has not had any recurrence of the bleeding since the colonoscopy prep was initiated. Blood pressures and heart rate have both been stable. She has tolerated her diet well. Hemoglobin level has been stable around 10. I suspect the bleeding was diverticular in nature and there may have been complication/contribution from her clopidogrel. She has been on this medication for many years. We discussed potential alternatives including low-dose enteric-coated aspirin. She does have history of an allergy to aspirin but this was bruising. After discussion we elected to initiate low-dose enteric- coated aspirin and discontinue the clopidogrel since she is more than 25 years out from her previous stenting. She will be following up early next week to ensure ongoing clinical improvement. - Patient Instructions Diet: Heart Healthy Diet Activity: As Tolerated Showering/Bathing: May Shower Notify Provider of: Fever, Increased Pain, Nausea and/or Vomiting Other/Special Instructions: 1. You were in the hospital for management of acute lower gastrointestinal bleeding. I suspect the bleeding came from an irritated diverticulum in your colon. We did not definitively identify the bleeding source even with 2 colonoscopies and a barium enema. The bleeding has stopped. To prevent future episodes of bleeding I would recommend discontinuing clopidogrel as discussed below. I would also recommend continuing an aggressive bowel regimen to avoid constipation. 2. Stop taking clopidogrel (Plavix) to help reduce your risk of bleeding. In its place you should start taking aspirin 81 mg daily. An enteric-coated preparation would help to reduce stomach upset. 3. Follow up with Dr. Arriaga next week. 4. Seek medical attention if you develop fever greater than 101, have return of the blood in the stool or if you develop severe abdominal pain or persistent vomiting. - Discharge Plan Prescriptions/Med Rec: Aspirin [Halfprin] 81 mg PO DAILY #100 tab.ec Home Medications: Home Meds Acetaminophen [Tylenol] 2 tab PO Q6H PRN 11/23/15 [History] Albuterol Sulfate [Proair Hfa] 2 puff INH QID 11/23/15 [History] Cholecalciferol (Vitamin D3) [Vitamin D3] 1,000 unit PO DAILY 11/23/15 [History] Fluticasone/Salmeterol [Advair Diskus 500-50] 1 puff INH BID 11/23/15 [History] Gabapentin [Neurontin] 300 mg PO BID 11/23/15 [History] Garlic 1,000 mg PO DAILY 11/23/15 [History] Isosorbide Mononitrate [Imdur] 30 mg PO DAILY 11/23/15 [History] Lisinopril 2.5 mg PO DAILY 11/23/15 [History] Multivitamin [Multivitamins] 1 tab PO DAILY 11/23/15 [History] Nitroglycerin 0.4 mg SL ASDIRECTED 11/23/15 [History] Pantoprazole [ProTONIX] 40 mg PO DAILY 11/23/15 [History] Simvastatin [Zocor] 80 mg PO BEDTIME 11/23/15 [History] tiZANidine [Zanaflex] 4 mg PO BEDTIME 02/08/17 [History] Propranolol [Inderal] 10 mg PO BID 03/13/18 [History] Aspirin [Halfprin] 81 mg PO DAILY #100 tab.ec 03/15/18 [Rx] Patient Handouts: Lower Gastrointestinal Bleeding, Steps to Quit Smoking Referrals: Louie Arriaga MD [Primary Care Provider] - (1 week - f/u hospital stay for GI bleed) - Discharge Summary/Plan Comment DC Time >30 min.: No (25) - Patient Data Vitals - Most Recent: Last Vital Signs Temp 36.3 C 03/15/18 08:18 Pulse 66 03/15/18 08:11 Resp 12 03/15/18 08:18 BP 162/88 H 03/15/18 08:18 Pulse Ox 90 L 03/15/18 08:18 Weight - Most Recent: 45.359 kg I&O - Last 24 hours: Intake & Output 03/14/18 03/15/18 03/15/18 22:59 06:59 14:59 Intake Total 820 1100 200 Output Total 1000 2000 Balance -180 -900 200 Lab Results - Last 24 hrs: Laboratory Results - last 24 hr 03/15/18 03/15/18 Range/Units 04:41 04:41 WBC 5.2 (4.5-11.0) K/uL RBC 3.17 L (3.30-5.50) M/uL Hgb 9.4 L (12.0-15.0) g/dL Hct 28.7 L (36.0-48.0) % MCV 91 (80-98) fL MCH 30 (27-31) pg MCHC 33 (32-36) % Plt Count 142 L (150-400) K/uL Sodium 136 L (140-148) mmol/L Potassium 3.7 (3.6-5.2) mmol/L Chloride 101 (100-108) mmol/L Carbon Dioxide 32 (21-32) mmol/L Anion Gap 6.7 (5.0-14.0) mmol/L BUN 9 (7-18) mg/dL Creatinine 0.8 (0.6-1.0) mg/dL Est Cr Clr Drug Dosing 42.17 mL/min Estimated GFR (MDRD) > 60 (>60) Glucose 104 (74-106) mg/dL Calcium 7.6 L (8.5-10.1) mg/dL Phosphorus 3.1 (2.5-4.9) mg/dL Total Bilirubin 0.4 (0.2-1.0) mg/dL AST 24 (15-37) U/L ALT 22 (12-78) U/L Alkaline Phosphatase 61 (46-116) U/L NT-Pro-B Natriuret Pep 770 H (5-450) pg/mL Total Protein 5.0 L (6.4-8.2) g/dL Albumin 2.4 L (3.4-5.0) g/dL Globulin 2.6 (2.3-3.5) g/dL Albumin/Globulin Ratio 0.9 L (1.2-2.2) Med Orders - Current: Current Medications Albuterol (Ventolin Hfa) 0 gm INH QIDRT [facility] Last Admin: 03/15/18 07:18 Dose: 2 puff Fentanyl (Sublimaze) 50 mcg IVPUSH Q6H PRN PRN Reason: Pain (severe 7-10) Isosorbide Mononitrate (Imdur) 30 mg PO DAILY@0730 [facility] Last Admin: 03/13/18 07:43 Dose: Not Given Lisinopril (Prinivil) 2.5 mg PO DAILY [facility] Mometasone Furoate/Formoterol Fumar (Dulera 200-5 Mcg) 2 puff IH BIDRT [facility] Last Admin: 03/15/18 07:18 Dose: 2 puff Nicotine (Habitrol) 14 mg TRDERM BEDTIME [facility] Last Admin: 03/14/18 20:52 Dose: 14 mg Ondansetron HCl (Zofran) 4 mg IVPUSH Q6H PRN PRN Reason: Nausea/Vomiting Last Admin: 03/13/18 20:03 Dose: 4 mg Pantoprazole Sodium (Protonix) 40 mg PO ACBREAKFAST [facility] Last Admin: 03/15/18 07:49 Dose: 40 mg Propranolol HCl (Inderal) 10 mg PO BID [facility] Last Admin: 03/14/18 20:53 Dose: 10 mg Tizanidine HCl (Zanaflex) 4 mg PO BEDTIME [facility] Last Admin: 03/14/18 20:53 Dose: 4 mg Discontinued Medications Albuterol (Ventolin Hfa) 0 gm INH QID [facility] Last Admin: 03/13/18 05:40 Dose: 2 puff Bisacodyl (Dulcolax) 10 mg PO ONETIME ONE Stop: 03/13/18 11:31 Last Admin: 03/13/18 11:33 Dose: 10 mg Bisacodyl (Dulcolax) 10 mg PO ONETIME ONE Stop: 03/13/18 20:01 Last Admin: 03/13/18 20:03 Dose: 10 mg Bupivacaine HCl/Epinephrine Bitart (Marcaine 0.5%/Epinephrine 1:200,000) Confirm Administered Dose 50 ml .ROUTE .STK-MED ONE Stop: 03/13/18 08:02 Dexamethasone (Dexamethasone) Confirm Administered Dose 4 mg .ROUTE .STK-MED ONE Stop: 03/13/18 07:39 Factor VIIa (Recombinant) (Novoseven Rt) 2,000 mcg IVPUSH ONETIME ONE Stop: 03/13/18 08:01 Last Admin: 03/13/18 08:06 Dose: 2,000 mcg Factor VIIa (Recombinant) (Novoseven Rt) 2,000 mcg IVPUSH ONETIME ONE Stop: 03/13/18 11:31 Last Admin: 03/13/18 11:33 Dose: 2,000 mcg Fentanyl (Sublimaze) Confirm Administered Dose 100 mcg .ROUTE .[facility]-MED ONE Stop: 03/13/18 07:39 Fentanyl (Sublimaze) Confirm Administered Dose 100 mcg .ROUTE .K-MED ONE Stop: 03/14/18 07:03 Glycopyrrolate (Robinul) Confirm Administered Dose 1 mg .ROUTE .[facility]-MED ONE Stop: 03/13/18 09:43 Lactated Ringer's (Ringers, Lactated) 1,000 mls @ 500 mls/hr IV ASDIRECTED [facility] Last Admin: 03/13/18 04:14 Dose: 500 mls/hr Sodium Chloride (Normal Saline) 1,000 mls @ 50 mls/hr IV ASDIRECTED [facility] Last Admin: 03/13/18 05:45 Dose: 50 mls/hr Lactated Ringer's (Ringers, Lactated) 1,000 mls @ 500 mls/hr IV ASDIRECTED [facility] Pantoprazole Sodium 80 mg/ (Sodium Chloride) 100 mls @ 10 mls/hr IV .Q10H [facility] Last Admin: 03/13/18 05:46 Dose: Not Given Sodium Chloride (Normal Saline) 1,000 mls @ 50 mls/hr IV ASDIRECTED [facility] Pantoprazole Sodium 80 mg/ (Sodium Chloride) 100 mls @ 10 mls/hr IV Q10H [facility] Last Admin: 03/13/18 23:00 Dose: 10 mls/hr Meropenem 500 mg/ Sodium (Chloride) 50 mls @ 100 mls/hr IV ONCALL ONE Stop: 03/13/18 14:29 Meropenem 500 mg/ Sodium (Chloride) 50 mls @ 100 mls/hr IV ONCALL ONE Stop: 03/13/18 09:59 Last Admin: 03/13/18 09:07 Dose: 100 mls/hr Dextrose/Lactated Ringer's (Dextrose 5%-Lactated Ringers) 1,000 mls @ 80 mls/ hr IV ASDIRECTED [facility] Last Admin: 03/15/18 03:01 Dose: 80 mls/hr Magnesium Sulfate 2 gm/ Premix 50 mls @ 25 mls/hr IV Q6HR [facility] Stop: 03/16/18 05:59 Last Admin: 03/15/18 03:01 Dose: 25 mls/hr Neostigmine Methylsulfate (Neostigmine) Confirm Administered Dose 5 mg .ROUTE .STK-MED ONE Stop: 03/13/18 09:43 Nicotine (Habitrol) 14 mg TRDERM DAILY [facility] Last Admin: 03/13/18 10:36 Dose: Not Given Nicotine (Habitrol) Confirm Administered Dose 14 mg .ROUTE .STK-MED ONE Stop: 03/13/18 04:35 Last Admin: 03/13/18 04:55 Dose: Not Given Ondansetron HCl (Zofran) Confirm Administered Dose 4 mg .ROUTE .STK-MED ONE Stop: 03/13/18 07:39 Pantoprazole Sodium (Protonix Iv) 40 mg IVPUSH ONETIME ONE Stop: 03/13/18 02:23 Last Admin: 03/13/18 02:45 Dose: 40 mg Polyethylene Glycol (Miralax) 238 gm PO ONETIME ONE Stop: 03/13/18 17:01 Last Admin: 03/13/18 17:00 Dose: 238 gm Propofol (Diprivan 20 Ml) Confirm Administered Dose 200 mg .ROUTE .STK-MED ONE Stop: 03/13/18 07:39 Propofol (Diprivan 20 Ml) Confirm Administered Dose 200 mg .ROUTE .STK-MED ONE Stop: 03/14/18 07:03 Rocuronium [place] (Zemuron) Confirm Administered Dose 50 mg .ROUTE .STK-MED ONE Stop: 03/13/18 07:39 Succinylcholine Chloride (Quelicin) Confirm Administered Dose 200 mg .ROUTE .STK -MED ONE Stop: 03/13/18 07:39 - Exam Quality Assessment: Denies: Supplemental Oxygen General: Reports: Alert, Oriented, Cooperative, No Acute Distress Neck: Reports: Supple Lungs: Reports: Normal Respiratory Effort GI/Abdominal Exam: No Distention Extremities: No Pedal Edema Psy/Mental Status: Reports: Alert, Normal Affect *Q Meaningful Use (DIS) - VTE *Q VTE Mechanical Contraindications *Q: At Risk for Falls VTE Pharmacological Contraindications *Q: Active Hemorrhage
--- NOTE | 2018-03-15 11:01 | PN ---
DATE OF SERVICE: 03/15/2018 The patient no further bleeding. The overall look appears to be consistent with bleeding from diverticular disease. She does have an extremely redundant colon. This situation was discussed with Dr. Bryan. We will likely leave her off the Plavix for a period of time and then begin a bowel program resulting in less problems with chronic constipation given her extremely redundant colon. David Ronquillo MD /[id number]
--- NOTE | 2018-03-20 11:18 | OR ---
DATE OF PROCEDURE: 03/14/2018 PREOPERATIVE DIAGNOSIS: Lower gastrointestinal bleeding. POSTOPERATIVE DIAGNOSIS: Lower gastrointestinal bleeding associated with extensive colonic diverticulosis (no active bleeding identified). OPERATIVE PROCEDURE: Flexible colonoscopy, incomplete, ([id number]). INDICATION FOR PROCEDURE: Please see previous progress notes. Potential risks including bleeding and perforation were discussed, and the patient wishes to proceed. DETAILS OF PROCEDURE: The patient was taken to the operating room and placed in the left lateral decubitus position. IV sedation was administered, after which the initial digital rectal exam was performed and was unremarkable. Colonoscope was then eventually passed just proximal to the splenic flexure. To that level, the patient was noted to have extensive diverticulosis. There was some brown liquid stool present but, to that level, the visualization was generally good. The colonoscope did not appear to be adequately insufflating the patient, and we could not pass the scope proximal to the distal transverse colon. The scope was then withdrawn, the above findings were reconfirmed, and the procedure then concluded. We will complete the patient's colon examination with a barium enema x-ray later this morning. David Ronquillo MD /[id number]
--- NOTE | 2018-03-20 15:20 | OR ---
DATE OF PROCEDURE: 03/13/2018 PREOPERATIVE DIAGNOSIS: Lower gastrointestinal bleeding. POSTOPERATIVE DIAGNOSES: 1. Lower gastrointestinal bleeding with extensive sigmoid colon diverticulosis (no active bleeding). 2. Unable to pass the scope beyond roughly 40 cm, i.e. mid sigmoid colon due to large amount of old blood in stool. OPERATIVE PROCEDURE: Flexible sigmoidoscopy (60806). ANESTHESIA: IV sedation. INDICATION FOR PROCEDURE: The patient presents overnight with what appears to be lower GI bleeding. Plan is to proceed with unprepped colonoscopy at this time. Potential risks including bleeding and perforation were discussed as well as possible need for additional prep and a secondary procedure if today's exam is not satisfactorily diagnostic. Potential risks of the procedure including bleeding and perforation were discussed, and the patient wishes to proceed. DETAILS OF PROCEDURE: The patient was taken to the operating room and placed in a left lateral decubitus position. After IV sedation was administered, the initial digital rectal exam was performed and was unremarkable. Colonoscope was then passed into the level of the rectum which showed quite a bit of some old blood. The scope was eventually passed up to roughly 40 cm. The colon was fairly tortuous as well as filled with some old blood and stool. There was no active bleeding seen to that level. There was already quite a bit in the way of diverticulosis. The scope could not be passed more proximal through the inadequate prep, and the scope was then withdrawn. The procedure concluded. The patient was taken to the recovery room in satisfactory condition. The plan will be to proceed with a flexible colonoscopy tomorrow after formal prep. What appeared at this point at least she has not had further bleeding. She did receive some factor VII after being seen by myself this morning which per the nurse's seemed to have stopped the frequent loose bloody bowel movements she was having. I think we will give her an additional dose of factor VII later today as well to try to limit the recurrence of the bleeding with the prep being performed. David Ronquillo MD /[id number]
== END 2018-03-15 10:10 | disposition home or self-care (01) | DRG 378 ==
LOC: JP.ED 00:42 → JP.ICU 03:29
PROVIDERS: ADMIT Family Medicine; ATTEND Internal Medicine
PROC: 0DJD8ZZ Inspection of Lower Intestinal Tract, Via Natural or Artificial Opening Endoscopic (ICD-10-PCS; principal; 2018-03-13)
PROC: 30233N1 Transfusion of Nonautologous Red Blood Cells into Peripheral Vein, Percutaneous Approach (ICD-10-PCS; 2018-03-13)
PROC: 0DJD8ZZ Inspection of Lower Intestinal Tract, Via Natural or Artificial Opening Endoscopic (ICD-10-PCS; 2018-03-14)
DX: K92.2 Gastrointestinal hemorrhage, unspecified (principal); K57.31 Diverticulosis of large intestine without perforation or abscess with bleeding; D62 Acute posthemorrhagic anemia; F17.210 Nicotine dependence, cigarettes, uncomplicated; T45.525A Adverse effect of antithrombotic drugs, initial encounter; I12.9 Hypertensive chronic kidney disease with stage 1 through stage 4 chronic kidney disease, or unspecified chronic kidney disease; Y92.009 Unspecified place in unspecified non-institutional (private) residence as the place of occurrence of the external cause; N18.3 Chronic kidney disease, stage 3 (moderate); I25.10 Atherosclerotic heart disease of native coronary artery without angina pectoris; K62.5 Hemorrhage of anus and rectum; J44.9 Chronic obstructive pulmonary disease, unspecified; E11.22 Type 2 diabetes mellitus with diabetic chronic kidney disease; E11.40 Type 2 diabetes mellitus with diabetic neuropathy, unspecified; F17.219 Nicotine dependence, cigarettes, with unspecified nicotine-induced disorders; E78.00 Pure hypercholesterolemia, unspecified; I25.2 Old myocardial infarction; Z90.2 Acquired absence of lung [part of]; Z95.5 Presence of coronary angioplasty implant and graft; M19.90 Unspecified osteoarthritis, unspecified site; M54.9 Dorsalgia, unspecified; G89.29 Other chronic pain; K21.9 Gastro-esophageal reflux disease without esophagitis; H54.7 Unspecified visual loss; Z79.82 Long term (current) use of aspirin; Z88.6 Allergy status to analgesic agent; Z88.5 Allergy status to narcotic agent; Z88.8 Allergy status to other drugs, medicaments and biological substances
CPT/HCPCS: 36415; 80048; 81001; 85027; 85610; 86850; 86900; 86901; 86920; 86922; 96361; 99284 ×2; C9113; J7030; J7120; 36430; 74270; 74270-26; 80053; 83735; 83880; 84100; 85014; 85018; 85025; 93005; 94640-76; 94664; 96374; A9270-GY; J0330; J1100; J2185; J2405; J2704; J2710; J3010; J3475; J7042; J7050; J7189; P9016